=== PATIENT | male | born 1980 | race African-American/Black ===

== ENCOUNTER 2018-12-03 18:13 | Emergency (ER) | payer OTHER ==
[~2018-12-03] VITALS: Wt 76.5 kg
[2018-12-03] MEDS ORDERED: ONDANSETRON 4 MG INJ IV STA (18:28)
[2018-12-03] MEDS ORDERED: morphine 4 MG/ML VIAL IV STA (18:28)
[2018-12-03] MEDS ORDERED: SOD CHLORIDE 0.9% 1,000 ML IV STA (18:28)
--- NOTE | 2018-12-03 18:42 | ERD ---
ER Documentation Chief Complaint Chief Complaint bib ra from home for abd. pain x 7 days, HPI 38-year-old male history of schizophrenia presents to the emergency room with left lower quadrant abdominal pain. Initially he stated 7 days but then he thinks approximately 24 hours. The pain is 8 out of 10, sharp and nonradiating from the left lower quadrant. No nausea vomiting diarrhea or constipation. He denies any fevers or chills, no testicular pain, no dysuria urgency or frequency. ROS All systems reviewed and are negative except as per history of present illness. Medications Home Meds Active Scripts Metronidazole* (Flagyl*) 500 Mg Tablet, 500 MG PO TID for 7 Days, TAB Prov:JOSE PLUMMER MD 12/03/18 Ciprofloxacin Hcl* (Ciprofloxacin Hcl*) 500 Mg Tablet, 500 MG PO BID for 7 Days, TAB Prov:JOSE PLUMMER MD 12/03/18 Docusate Sodium* (Colace*) 100 Mg Capsule, 100 MG PO TID PRN for CONSTIPATION, #30 CAP Prov:JOSE PLUMMER MD 12/03/18 Dicyclomine HCl (Dicyclomine HCl) 10 Mg Capsule, 10 MG PO TID PRN for ABDOMINAL CRAMPING, #20 CAP Prov:JOSE PLUMMER MD 12/03/18 Allergies Allergies: Coded Allergies: No Known Allergy (Unverified , 12/03/18) FmHx Family History: No diabetes Physical Exam Vitals Vital Signs Date Temp Pulse Resp B/P (MAP) Pulse Ox O2 O2 Flow FiO2 Time Delivery Rate 12/03/18 98.7 89 19 120/72 100 18:26 (88) Physical Exam General: Well developed, well nourished, no acute distress Head: Normocephalic, atraumatic. Eyes: Pupils equally reactive, EOM intact ENT: Moist mucous membranes Neck: Supple, no lymphadenopathy Respiratory: Lungs clear bilaterally, no distress Cardiovascular: RRR, no murmurs, rubs, or gallops Abdominal: Soft, left lower quadrant focal tenderness with voluntary guarding, no inguinal hernia : Deferred MSK: No edema, no unilateral swelling, 5/5 strength Neurologic: Alert and oriented, moving all extremities, normal speech, no focal weakness, no cerebellar signs Skin: No rash Psych: Normal mood Result Diagram: 12/03/18183412/03/181834 Results 24 hrs Laboratory Tests Test 12/03/18 18:35 White Blood Count 12.0 10^3/ul Red Blood Count 4.43 10^6/ul Hemoglobin 14.4 g/dl Hematocrit 43.6 % Mean Corpuscular Volume 98.4 fl Mean Corpuscular Hemoglobin 32.5 pg Mean Corpuscular Hemoglobin Concent 33.0 g/dl Red Cell Distribution Width 11.6 % Platelet Count 232 10^3/UL Mean Platelet Volume 9.9 fl Immature Granulocytes % 0.400 % Neutrophils % 78.2 % Lymphocytes % 11.7 % Monocytes % 9.2 % Eosinophils % 0.3 % Basophils % 0.2 % Nucleated Red Blood Cells % 0.0 /100WBC Immature Granulocytes # 0.050 10^3/ul Neutrophils # 9.4 10^3/ul Lymphocytes # 1.4 10^3/ul Monocytes # 1.1 10^3/ul Eosinophils # 0.0 10^3/ul Basophils # 0.0 10^3/ul Nucleated Red Blood Cells # 0.0 10^3/ul Sodium Level 140 mmol/L Potassium Level 4.2 mmol/L Chloride Level 103 mmol/L Carbon Dioxide Level 31 mmol/L Anion Gap 6 Blood Urea Nitrogen 14 mg/dl Creatinine 1.15 mg/dl Est Glomerular Filtrat Rate mL/min > 60 mL/min Glucose Level 100 mg/dl Calcium Level 9.3 mg/dl Total Bilirubin 1.8 mg/dl Direct Bilirubin 0.00 mg/dl Indirect Bilirubin 1.8 mg/dl Aspartate Amino Transf (AST/SGOT) 32 IU/L Alanine Aminotransferase (ALT/SGPT) 34 IU/L Alkaline Phosphatase 45 IU/L Total Protein 7.4 g/dl Albumin 4.3 g/dl Globulin 3.10 g/dl Albumin/Globulin Ratio 1.38 Lipase 63 U/L Current Medications Medications Dose Sig/Jolly Start Time Status Last (Trade) Ordered Route PRN Stop Time Admin Dose Reason Admin Sodium 1,000 ml @ Q1H STAT 12/03/18 DC 12/03/18 Chloride 1,000 mls/hr IV 18:28 18:39 12/03/18 19:27 Morphine 4 mg ONCE STAT 12/03/18 DC 12/03/18 Sulfate IV 18:28 18:39 (morphine) 12/03/18 18:29 Ondansetron 4 mg ONCE STAT 12/03/18 DC 12/03/18 HCl (Zofran IV 18:28 18:39 Inj) 12/03/18 18:29 500 mg ONCE ONCE 12/03/18 Ciprofloxacin PO 20:00 (Cipro) 12/03/18 20:01 500 mg ONCE ONCE 12/03/18 Metronidazole PO 20:00 (Flagyl) 12/03/18 20:01 Procedures/MDM EKG, MONITORS, & DIAGNOSTIC IMAGING: CT abdomen and pelvis: IMPRESSION: 1. Extensive diverticular disease throughout the colon with acute, uncomplicated, distal descending and proximal sigmoid diverticulitis but without pneumoperitoneum or abscess 2. The remainder of the examination is unremarkable. LAB INTERPRETATION: I reviewed the laboratory testing and it shows wbc elevation MEDICAL DECISION MAKING: Patient presents with focal left lower quadrant abdominal tenderness. Concern for diverticulitis. No signs or symptoms concerning for volvulus or obstructive process. Low concern for ureteral process, testicular process or vascular process. Patient will benefit from symptom control and CT imaging of the abdomen pelvis. ER COURSE: * Patient given IV fluids and pain control medication. Symptoms improved * CT imaging shows uncomplicated diverticulitis. Oral Cipro and Flagyl provided. The patient will likely do well on an outpatient basis with oral m edications. * Return precautions were discussed and understood. CONSULTATION: None DISPOSITION PLAN: The patient does not have an identifiable emergent medical condition that warrants inpatient hospitalization at this time. The patient is deemed safe for discharge with outpatient follow-up. We discussed follow up with the patient's primary care doctor within 24 to 48 hours as needed. We also discussed return to the emergency room for worsening symptoms or worsening condition. Outpatient referral: None required Discharge Medications: Cipro, Flagyl, Bentyl, Colace Departure Diagnosis: Primary Impression: Acute diverticulitis Additional Impression: Abdominal pain Abdominal location: left lower quadrant Qualified Codes: R10.32 - Left lower quadrant pain Condition: Stable JOSE PLUMMER MD Dec 03, 2018 18:42
[2018-12-03] MEDS ORDERED: METR500T PO (19:36)
[2018-12-03] MEDS ORDERED: DICY10CA40 PO (19:36)
[2018-12-03] MEDS ORDERED: CIPR500T4 PO (19:36)
[2018-12-03] MEDS ORDERED: DOCU-144 PO (19:36)
[2018-12-03] MEDS ORDERED: CIPROFLOXACIN 500 MG TAB PO ONE (20:00)
[2018-12-03] MEDS ORDERED: metroNIDAZOLE 500 MG TAB PO ONE (20:00)
[2018-12-03 20:30] VITALS: BP 121/66; PULSE 69; RESP 18
== END 2018-12-03 20:36 | disposition home or self-care (01) ==
LOC: E/R 18:13
DX: K57.32 Diverticulitis of large intestine without perforation or abscess without bleeding (principal); R40.2142 Coma scale, eyes open, spontaneous, at arrival to emergency department; R40.2362 Coma scale, best motor response, obeys commands, at arrival to emergency department; R40.2252 Coma scale, best verbal response, oriented, at arrival to emergency department
CPT/HCPCS: 36415; 74176; 80053; 83690; 85025; 96374; 96375; J2270; J2405; J7030; Z7502; Z7610